=== PATIENT | female | born 1970 | race Caucasian/White ===

== ENCOUNTER 2019-11-24 15:41 | Emergency (ER) | payer BC ==
[2019-11-24 16:04] VITALS: BP 154/85
--- NOTE | 2019-11-24 16:05 | UC ---
Knee Pain HPI - HPI Summary HPI Summary: Patient is a 49yo female presenting with right knee pain after feeling a " severe pop" while walking up the stairs ~2 hours ago. Patient states she was able to "hobble over to a chair afterward to apply ice. States that when she went to stand up again, she was unable to bear weight due to "excruciating pain. " States pain is exacerbated also by bending the knee, although she still is able to bend it. States pain is better when leg is fully distended. States pain radiates to lower leg. Denies numbness and tingling. Denies bruising or noticeable swelling. States she "injured some ligaments in the same knee as a teenager but never needed any surgery." Patient is using an old knee immobilizer and crutches which she states helps. - History of Current Complaint Stated Complaint: RIGHT KNEE INJURY Hx Obtained From: Patient Hx Last Menstrual Period: 11/03/19 Pain Intensity: 8 Pain Scale Used: 0-10 Numeric - Allergies/Home Medications Allergies/Adverse Reactions: Allergies Allergy/AdvReac Type Severity Reaction Status Date / Time erythromycin base Allergy Severe STOMACH Verified 11/24/19 15:47 PAIN Home Medications: Home Medications Aspirin 81 mg CHEW TAB* [Aspirin Low Dose TAB*] 81 mg PO DAILY 11/24/19 [ History Confirmed 11/24/19] Cholecalciferol CAP/TAB(NF) [Vitamin D3 CAP/TAB (NF)] 1,000 unit PO DAILY [History Confirmed 11/24/19] Esomeprazole Magnesium [Nexium 24Hr] 20 mg PO DAILY 11/24/19 [History Confirmed 11/24/19] Fenofibrate(NF) [Tricor(NF)] 145 mg PO DAILY 11/24/19 [History Confirmed ] Gabapentin CAP(*) [Neurontin 100 mg CAP(*)] 100 mg PO DAILY 11/24/19 [History Confirmed 11/24/19] LevoCETirizine TAB (NF) [Xyzal TAB (NF)] 5 mg PO DAILY 11/24/19 [History Confirmed 11/24/19] Melatonin [Ra Melatonin] 10 mg PO BEDTIME 11/24/19 [History Confirmed 11/24/19] Metformin HCl [Metformin HCl ER] 500 mg PO DAILY 11/24/19 [History Confirmed 01/07] Mometasone 220 MCG MDI * [Asmanex 220 MCG MDI *] 1 puff INH BID 11/24/19 [ History Confirmed 11/24/19] Mometasone NASAL (NF) [Nasonex (NF)] 1 spray NA BID 11/24/19 [History Confirmed 11/24/19] Montelukast Sodium TAB* [Singulair TAB*] 10 mg PO DAILY 11/24/19 [History Confirmed 11/24/19] Multivitamin [Multivitamins] 1 cap PO DAILY 11/24/19 [History Confirmed 11/24/19 ] Spironolactone TAB* [Aldactone TAB*] 25 mg PO DAILY 11/24/19 [History Confirmed 11/24/19] celeCOXIB CAP* [CeleBREX CAP*] 200 mg PO DAILY 11/24/19 [History Confirmed 11/23] PMH/Surg Hx/FS Hx/Imm Hx Endocrine History: Dyslipidemia, Other - PCOS - Surgical History Surgical History: Yes Surgery Procedure, Year, and Place: sinus surgery, polops removed. appendectomy. tonsillectomy - Family History Known Family History: Positive: Non-Contributory - Social History Alcohol Use: Rare Substance Use Type: None Smoking Status (MU): Former Smoker When Did the Patient Quit Smoking/Using Tobacco: jun 2019 Review of Systems All Other Systems Reviewed And Are Negative: No Constitutional: Positive: Negative Skin: Positive: Negative. Negative: Bruising Respiratory: Positive: Negative Cardiovascular: Positive: Negative Gastrointestinal: Positive: Negative Neurovascular: Positive: Negative Musculoskeletal: Positive: Arthralgia - right knee, Decreased ROM - right knee due to pain. Negative: Edema Neurological/Mental Status: Positive: Negative. Negative: Paresthesia, Numbness Physical Exam - Summary Physical Exam Summary: Vital Signs Reviewed: Yes A+Ox3, no distress, obese Eyes: Conjunctiva Clear ENT: Hearing grossly normal neck: supple Respiratory: Positive: No respiratory distress, No accessory muscle use Cardiovascular: skin color reflect adequate perfusion Musculoskeletal Exam: +TTP of right anterolateral knee with mild effusion noted. no erythema or ecchymosis. able to flex right knee 90 degrees with pain exacerbation. 2+ DP/PT pulses, sensation grossly intact, unable to bear weight on right leg, exam limited due to pain Neurological: Positive: Alert Psychological: Positive: age appropriate behavior Skin: Positive: no rash, no ecchymosis Vital Signs: Initial Vital Signs Temp 98 F 11/24/19 15:54 Pulse 93 11/24/19 15:54 Resp 18 11/24/19 15:54 BP 154/85 11/24/19 15:54 Pulse Ox 97 11/24/19 15:54 Diagnostics - Radiology right knee Radiology Interpretation Completed By: Radiologist Summary of Radiographic Findings: IMPRESSION: Mild degenerative changes of the right knee as described above. If the patient's symptoms persist, follow-up imaging is recommended. Knee Pain Course/Dx - Course Course Of Treatment: Discussed degenerative radiograph findings with patient. Patient instructed to rest, ice, and elevate. Instructed to use OTC analgesics as directed for pain relief. May continue to use immobilizer and crutches. Patient instructed to follow up with the orthopedic referral given. Patient voiced understanding and agreed to treatment plan. - Differential Dx/Diagnosis Differential Diagnosis/HQI/PQRI: Dislocation, Fracture (Closed), Patellofemoral Syndrome, Sprain, Strain Provider Diagnosis: Pain in lateral portion of right knee Discharge ED - Sign-Out/Discharge Documenting (check all that apply): Patient Departure All imaging exams completed and their final reports reviewed: Yes - Discharge Plan Condition: Stable Disposition: HOME Patient Education Materials: Knee Pain (ED), Osteoarthritis (ED) Referrals: Vernon Teague MD [Medical Doctor] - 1 Week Additional Instructions: As discussed, your xrays revealed degenerative changes in your knee. Continue to rest, ice, and elevate. Continue with the knee immobilizer and crutches. Use over the counter pain medications as directed for pain relief. Follow up with the orthopedic referral listed below for further evaluation. - Billing Disposition and Condition Condition: STABLE Disposition: Home
[2019-11-24] MEDS ORDERED: Acetaminophen TAB* 325 MG PO ONE (16:11)
== END 2019-11-24 17:13 | disposition home or self-care (01) ==
LOC: UCCORT 15:41
DX: M25.561 Pain in right knee (principal); M17.11 Unilateral primary osteoarthritis, right knee; E78.5 Hyperlipidemia, unspecified; Z79.82 Long term (current) use of aspirin; Z79.899 Other long term (current) drug therapy; Z88.1 Allergy status to other antibiotic agents; Z87.891 Personal history of nicotine dependence
CPT/HCPCS: 99212; A9270-GY; G0463